=== PATIENT | male | born 1960 | race Caucasian/White ===

== ENCOUNTER → 2016-05-17 | Outpatient (CLI) | payer BC ==
--- NOTE | 2016-05-17 13:19 | US ---
EXAMINATION TYPE: US prostate transrectal DATE OF EXAM: 05/17/2016 9:51 AM COMPARISON: CT abdomen and pelvis December 11, 2012 CLINICAL HISTORY: N40.1 benign hyperplasia. This examination was performed using the transrectal probe. EXAM MEASUREMENTS: Gland Size: 3.1 x 2.1 x 1.9cm Volume: 6.2 Predicted PSA: 0.74 Actual PSA (if available):1.25 TECHNOLOGIST IMPRESSION: Due to shadowing and small size of gland technically difficult study. No ob vious mass seen on today's scan. Prostate gland is not enlarged in size. No definitive nodules are present. Seminal vesicles are not w ell seen on images saved. IMPRESSION: Prostate gland is normal to small in size without discrete nodule identified.
== END ==
LOC: RADUSMAIN 07:53
PROVIDERS: ATTEND Family Medicine
DX: N40.1 Benign prostatic hyperplasia with lower urinary tract symptoms (principal)
CPT/HCPCS: 76872

== ENCOUNTER → 2021-03-12 | Outpatient (CLI) | payer BC ==
--- NOTE | 2021-03-12 16:30 | MR ---
EXAMINATION TYPE: MR knee RT wo con DATE OF EXAM: 03/12/2021 COMPARISON: Outside radiograph 03/06/2021 HISTORY: 60-year-old male Right knee pain, Swelling and locking x 2 weeks post jogging. TECHNIQUE: Multiplanar, multisequence imaging of the right knee is performed without IV contrast. FINDINGS: ACL and PCL are intact. There is 1.1 cm suspected early intraosseous ganglion cyst formation at the femoral attachment of the popliteus tendon. There is also edema tracking along the popliteus myotendinous junction, axial imag e 10. LCL complex otherwise intact. There is edema on either side of the intact MCL fibers. There is a small oblique tear at the junction of the posterior horn and body of the medial meniscus, sagittal image 10 and coronal image 25. Nearly full-thickness cartilage defect mid weightbearing aspect of the medial femoral condyle measuri ng 5 mm wide and 7 mm AP. Lateral meniscus appears intact. Focal moderate thickness cartilage fissure along the mid weightbeari ng aspect of the lateral femoral condyle, coronal image 23. Moderate irregular cartilage loss throughout the patellofemoral compartment. More areas of higher gra de cartilage loss along the patellar facets with reactive subchondral signal change. Extensor mechanism is intact. Small knee joint effusion. No Chavarria's cyst. There is some edema at the proximal tibiofibular joint and also some mild adjacent soft tissue edema. Suspect a ganglion cyst beginning to form, tracking from the proximal tibiofibular joint, axial imag e 4 and coronal image 31, measuring 1.9 cm and extending to the lateral margin of the lower popliteal neurovascular bundle. IMPRESSION: 1. Small oblique tear at the junction of the posterior horn and body of the medial meniscus. Nearly f ull-thickness cartilage defect along the mid weightbearing aspect of the medial femoral condyle measu ring 5 x 7 mm. 2. Focal moderate thickness cartilage fissure along the mid weightbearing aspect of the lateral femor al condyle. 3. Moderate overall patellofemoral compartmental osteoarthrosis. 4. Grade 1 MCL sprain. 5. Popliteus strain with suspected interstitial tearing along its myotendinous junction and a 1.1 cm intraosseous ganglion formation at its femoral attachment. 6. Additional edema at the proximal tibiofibular joint could represent a joint sprain with some react jimmie edema in the adjacent soft tissues. 7. A 1.9 cm ganglion cyst along the lateral margin of the lower popliteal neurovascular bundle tracki ng from the proximal tibiofibular joint.
== END | disposition home or self-care (01) ==
LOC: RADMRIMAIN 11:56
PROVIDERS: ATTEND Orthopaedic Surgery
DX: S83.241A Other tear of medial meniscus, current injury, right knee, initial encounter (principal); M17.11 Unilateral primary osteoarthritis, right knee; S83.8X1A Sprain of other specified parts of right knee, initial encounter; M67.461 Ganglion, right knee; X58.XXXA Exposure to other specified factors, initial encounter

== ENCOUNTER → 2021-03-19 | Outpatient (CLI) | payer BC ==
[2021-03-19 13:53] LABS: Basophils % (A) 1 %; Eosinophils # (A) 0.2 k/uL (0-0.7); Eosinophils % (A) 2 %; HCT 51.6 % (39.0-53.0); HGB 17.5 gm/dL (13.0-17.5); Lymphocytes # (A) 2.3 k/uL (1.0-4.8); Lymphocytes % (A) 28 %; MCH 31.8 pg (25.0-35.0); MCV 93.6 fL (80.0-100.0); Monocytes # (A) 0.5 k/uL (0-1.0); Monocytes % (A) 6 %; Neutrophils # (A) 4.9 k/uL (1.3-7.7); Neutrophils % (A) 61 %; Platelet Count 285 k/uL (150-450); RBC 5.52 m/uL (4.30-5.90); RDW 13.1 % (11.5-15.5)
[2021-03-19 18:20] LABS: Anion Gap 11.5 mmol/L (10.00-18.00); Carbon Dioxide 24.5 mmol/L (20.0-27.5); Potassium 4.2 mmol/L (3.5-5.5)
== END | disposition home or self-care (01) ==
LOC: LABPAT 12:23
PROVIDERS: ATTEND Orthopaedic Surgery
DX: Z01.812 Encounter for preprocedural laboratory examination (principal); M23.91 Unspecified internal derangement of right knee
CPT/HCPCS: 80051; 85025; 93005

== ENCOUNTER 2021-03-24 10:25 | Day surgery (SDC) | payer BC ==
[2021-03-18 11:51] VITALS: BMI 28.8
--- NOTE | 2021-03-23 09:57 | HP ---
HISTORY AND PHYSICAL CHIEF COMPLAINT: Right knee pain. 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 [place] when he felt a pop in his knee. He notes severe medial pain along with buckling and giving way ever since. He denies previous problems. He has been using crutches. He has tried medications, without much relief. PAST MEDICAL HISTORY: Significant for asthma and depression. PAST SURGICAL HISTORY: Significant for right shoulder arthroscopy. CURRENT MEDICATIONS: Ibuprofen. ALLERGIES: HE DENIES DRUG ALLERGIES. FAMILY HISTORY: Significant for cancer. SOCIAL HISTORY: Significant for social alcohol use. REVIEW OF SYSTEMS: Sixteen-point review of systems is otherwise reviewed and is noncontributory. PHYSICAL EXAMINATION: On examination, the patient is approximately 5 feet 8 inches, 190 pounds of mesomorphic habitus. HEENT exam is nonfocal. Neck is supple. He has painless passive motion of the right hip. Straight-leg raise is negative. Active motion of right knee: Minus 13 to 112 degrees of flexion. He has a moderate effusion. He is tender about the medial joint line. Collaterals are stable, Belgica is negative, Gris's elicits medial pain. He does have an antalgic gait pattern. His distal neurovascular exam appears intact in the right lower extremity. MRI report right knee 03/12/2021 shows evidence of a medial femoral condyle chondral defect along with a posterior medial meniscal tear. IMPRESSION: 1. Right knee internal derangement with symptomatic medial meniscal tear. 2. Right knee medial femoral condyle chondral defect. RECOMMENDATIONS: I talked to the patient at length regarding his condition along with treatment options. At this point he is having significant pain and mechanical symptoms after this acute injury. After thorough discussion, he opts to proceed with surgery. We will plan to proceed with arthroscopic evaluation with possible partial medial meniscectomy in addition to possible medial femoral chondrectomy with microfracture. Risks and benefits were discussed at length in layman's terms. We will likely perform that as an outpatient procedure. MMODL / IJN: [id number] /
[2021-03-24 11:19] VITALS: RESP 16
[2021-03-24] MEDS ORDERED: ONDANSETRON 4 MG/2 ML VIAL ONE (11:29)
[2021-03-24] MEDS ORDERED: LACTATED RINGERS 1,000 ML IV ONE (11:34)
[2021-03-24] MEDS ORDERED: DEXAMETHASONE SOD PHOSPHATE 4 MG/ML 1 ML VIAL IVP ONE (11:34)
[2021-03-24] MEDS ORDERED: ONDANSETRON 4 MG/2 ML VIAL IVP ONE (11:34)
[2021-03-24] MEDS ORDERED: MIDAZOLAM 2 MG/2 ML VIAL IVP ONE (11:41)
--- NOTE | 2021-03-24 12:06 | P.ANPRN ---
Procedure Note - Anesthesia - Nerve Block Performed Right Adductor Canal Single Time Out Performed: Yes (1140) Date of Procedure: 03/24/21 Procedure Start Time: 11:42 Procedure Stop Time: 11:46 Location of Patient: PreOp Indication: Acute Post-Operative Pain, Analgesia, Dx/Pain Location, Requested by Surgeon Sedation Type: Sedate with meaningful contact maintained Preparation: Sterile Prep, Sterile Dressing Position: Supine Catheter: None Needle Types: Pajunk Needle Gauge: 21 Ultrasound used to visualize needle placement: Yes Ultrasound used to observe medication spread: Yes Injectate: 0.5% Ropivacaine (see comment for volume) (10 mL mixed with 10 ML of preservative-free normal saline) Blood Aspirated: No Pain Paresthesia on Injection Noted: No Resistance on Injection: Normal Image Stored and Saved: Yes Events: Uneventful and Well Tolerated
--- NOTE | 2021-03-24 12:07 | P.ANPRN ---
Procedure Note - Anesthesia - Nerve Block Performed Right iPack Single Time Out Performed: Yes (1140) Date of Procedure: 03/24/21 Procedure Start Time: 11:48 Procedure Stop Time: 11:52 Location of Patient: PreOp Indication: Acute Post-Operative Pain, Analgesia, Dx/Pain Location, Requested by Surgeon Sedation Type: Sedate with meaningful contact maintained Preparation: Sterile Prep, Sterile Dressing Position: Supine Catheter: None Needle Types: Pajunk Needle Gauge: 21 Ultrasound used to visualize needle placement: Yes Ultrasound used to observe medication spread: Yes Injectate: 0.5% Ropivacaine (see comment for volume) (12 mL mixed with 10 ML of preservative-free normal saline) Blood Aspirated: No Pain Paresthesia on Injection Noted: No Resistance on Injection: Normal Image Stored and Saved: Yes Events: Uneventful and Well Tolerated
[2021-03-24] MEDS ORDERED: ROPIVACAINE 5 MG/ML 30 ML VIAL ONE (12:22)
[2021-03-24] MEDS ORDERED: LIDOCAINE 1% INJ 10MG/ML (20 ML MDV) ONE (12:22)
[2021-03-24] MEDS ORDERED: PROPOFOL 10 MG/ML 20 ML VIAL IV ONE (12:22)
[2021-03-24] MEDS ORDERED: SODIUM CHLORIDE 0.9% (PF) 10 ML VIAL ONE (12:22)
[2021-03-24] MEDS ORDERED: GLYCOPYRROLATE 0.2 MG/ML 2 ML VIAL ONE (12:22)
[2021-03-24] MEDS ORDERED: fentaNYL (PF) 50 MCG/ML 2 ML AMP ONE (12:22)
[2021-03-24] MEDS ORDERED: EPINEPHrine (PF) 1 ML in SODIUM CHLORIDE 0.9% IRRIGATIO 3,000 ML IRRIGATION ONE ×4 (12:30)
--- NOTE | 2021-03-24 13:12 | P.OP ---
Date of Procedure: 03/24/21 Preoperative Diagnosis: Right knee internal derangement Postoperative Diagnosis: Right knee posterior medial meniscal tear/grade 4 chondral injury central posterior medial femoral condyle Procedure(s) Performed: Right knee arthroscopic partial medial meniscectomy/microfracture medial femoral condyle Anesthesia: GALA Surgeon: Charly Botello Estimated Blood Loss (ml): 10 Pathology: none sent Condition: stable Disposition: PACU Indications for Procedure: The patient's 60-year-old male who presents with right knee pain and mechanical symptoms after a recent injury. A discussion of the risks and benefits of operative intervention versus conservative measures was made with patient. He opted to proceed with surgery. Operative risks to include infection, neurovascular injury, development of blood clots, possible incomplete resolution of symptoms, possible worsening symptoms and need for subsequent procedures was discussed. Informed consent was obtained. Operative Findings: As below Description of Procedure: The patient was brought to the operating room, and after induction of general anesthesia examined the right knee. Collaterals were stable, Belgica was negative, and posterior drawer was negative. The right lower extremity was prepped and draped in a normal fashion. A superior lateral portal was made through a 3 mm skin incision superior and lateral to the patella. This was used for outflow. A lateral portal was made through a 5 mm vertical skin incision lateral to the patella tendon above the joint line. Diagnostic arthroscopy was performed. On inspection of the medial compartment, a complex tear involving the posterior horn of the medial meniscus in the white-red junction was noted. This was not amenable to repair.. This was debrided back to stable base with straight baskets and a motorized shaver. A corresponding grade 4 chondral defect was noted involving the posterior central portion of the medial femoral condyle measuring 3 x 6 mm. Microfracture was performed with a power pic breeching the subchondral surface down to the bone marrow elements. On inspection of the notch, the anterior cruciate ligament appeared to be intact. On inspection of the lateral compartment, grade 2-3 chondral changes noted involving the distal lateral femoral condyle. The lateral meniscus appeared to be stable and intact. On inspection of the patellofemoral articulation, there is chondral fibrillation however no loose chondral fragments.. The gutters were clear debris. The knee was then thoroughly irrigated. The portals were closed with Steri-Strips. A sterile dressing was applied in addition to a compression stocking. The patient was awoken from general anesthesia and transferred to recovery room in good condition. Blood loss was estimated at 10 mL. No complications were incurred.
[2021-03-24 13:23] VITALS: TEMP 97.1
[2021-03-24] MEDS: LABETALOL 5 MG/ML VIAL MDV IV ONE ×2 (13:30→13:48)
[2021-03-24] MEDS ORDERED: HYDROmorphone 0.5 MG/0.5 ML SYRINGE IVP ONE (13:50)
[2021-03-24 14:25] VITALS: PULSE 72
[2021-03-24] MEDS ORDERED: hydrALAZINE HCL 20 MG/ML 1 ML VIAL IVP ONE (14:36)
[2021-03-24] MEDS ORDERED: hydrALAZINE HCL 20 MG/ML 1 ML VIAL ONE (14:37)
[2021-03-24 14:48] VITALS: BP 177/98
[2021-03-24] MEDS ORDERED: LACTATED RINGERS 1,000 ML IV SCH (15:15)
== END 2021-03-24 15:10 | disposition home or self-care (01) ==
LOC: OR 10:25
PROVIDERS: ATTEND Orthopaedic Surgery
DX: M23.91 Unspecified internal derangement of right knee (principal)
CPT/HCPCS: 29881; J2250; J0360; J1100; J0690; J2405; J0171; J2001; J3010; J2704; J1170; 64447; 64999; 76942

== ENCOUNTER → 2022-06-01 | Outpatient (CLI) | payer BC ==
--- NOTE | 2022-06-01 15:10 | CT ---
EXAMINATION TYPE: CT chest wo con CT DLP: 585 mGycm, Automated exposure control for dose reduction was used. DATE OF EXAM: 06/01/2022 2:54 PM COMPARISON: None CLINICAL INDICATION:Male, 61 years old with history of R06.02, J45.40; PHH, SOB TECHNIQUE: Multiple axial images were obtained through the chest without IV contrast. Lack of IV or o ral contrast limits evaluation of solid and hollow organ viscera. FINDINGS: LUNGS/ PLEURA: No pleural effusion, pneumothorax, or focal consolidation. No suspicious pulmonary nod ules or masses. AIRWAY: Patent and unremarkable.. HEART: Size within normal limits. No pericardial effusion. Minimal coronary arterial calcifications. MEDIASTINUM: No gross evidence of adenopathy. VASCULATURE: No aortic aneurysm. MUSCULOSKELETAL: No acute osseous abnormalities SOFT TISSUES/LYMPH NODES: Mild bilateral gynecomastia. LOWER NECK: No significant findings. UPPER ABDOMEN: Subcentimeter hypodensities of the liver most consistent with cysts. IMPRESSION: No acute thoracic process.
== END | disposition home or self-care (01) ==
LOC: RADCTMAIN 14:33
PROVIDERS: ATTEND Internal Medicine Clinical Cardiac Electrophysiology
DX: J45.40 Moderate persistent asthma, uncomplicated (principal); U07.1 COVID-19
CPT/HCPCS: 71250; 94060; 94726; 94729

== ENCOUNTER 2023-07-26 22:44 | Observation (INO) | payer BC ==
--- NOTE | 2023-07-26 23:14 | ED ---
General Adult HPI - General Source: patient, RN notes reviewed Mode of arrival: ambulatory Limitations: no limitations <Chanel Warren - Last Filed: 07/26/23 23:11> <Lottie Mckinley - Last Filed: 07/27/23 02:40> - General Chief complaint: Recheck/Abnormal Lab/Rx Stated complaint: Hypertension, Headache Time Seen by Provider: 07/26/23 22:58 - History of Present Illness Initial comments: Quick Note-this is a 62-year-old male presents emergency department complaint of elevated blood pressure. Patient states that over the last 2 days he is an elevated blood pressure readings at home with his latest being 180/110. He endorses headaches. Denies blurry vision, double vision, chest pain, chest pressure, palpitations, dizziness. Patient takes losartan potassium 25 mg daily. Denies history of heart attack and stroke. (Chanel Warren) 62-year-old male with history of hypertension hyperlipidemia presenting with chief complaint of elevated blood pressure. Patient was experiencing headaches over the weekend, which prompted him to check his blood pressure at home. States that he was persistently in the 160s systolic range. Today he checked his blood pressure and it was in the 180 systolic range which prompted him to come to the ER. He still admits to mild headache. He is having no chest pain, difficulty breathing, abdominal pain, nausea, vomiting, vision or hearing changes. (Lottie Mckinley) - Related Data Home Medications Medication Instructions Recorded Confirmed Albuterol Inhaler [Ventolin Hfa 1 puff INHALATION DIRECTED PRN 03/18/21 03/24/21 Inhaler] Desvenlafaxine [Desvenlafaxine ER] 50 mg PO HS 03/18/21 03/24/21 Ibuprofen [Motrin] 800 mg PO Q8HR PRN 03/24/21 03/24/21 Previous Rx's Medication Instructions Recorded HYDROcodone/APAP 5-325MG [[place] 1 tab PO Q6HR PRN #21 tab 03/24/21 5-325] Allergies Allergy/AdvReac Type Severity Reaction Status Date / Time No Known Allergies Allergy Verified 07/26/23 22:47 Review of Systems ROS Other: All systems not noted in ROS Statement are negative. <Chanel Warren - Last Filed: 07/26/23 23:11> ROS Other: All systems not noted in ROS Statement are negative. <Lottie Mckinley - Last Filed: 07/27/23 02:40> ROS Statement: Those systems with pertinent positive or pertinent negative responses have been documented in the HPI. Past Medical History Past Medical History: Hyperlipidemia, Hypertension History of Any Multi-Drug Resistant Organisms: None Reported Past Surgical History: Appendectomy, Orthopedic Surgery Additional Past Surgical History / Comment(s): Achilles tendon repair, bilateral shoulder surgery. Past Anesthesia/Blood Transfusion Reactions: Postoperative Nausea & Vomiting (PONV) Past Psychological History: No Psychological Hx Reported Smoking Status: Never smoker Past Alcohol Use History: Occasional Past Drug Use History: None Reported - Past Family History Mother Family Medical History: Cancer Father Family Medical History: Cancer Brother(s) Family Medical History: Cancer <Chanel Warren - Last Filed: 07/26/23 23:11> General Exam Limitations: no limitations <Chanel Warren - Last Filed: 07/26/23 23:11> Limitations: no limitations General appearance: alert, in no apparent distress Head exam: Present: atraumatic, normocephalic Eye exam: Present: normal appearance, EOMI Neck exam: Present: normal inspection Respiratory exam: Present: normal lung sounds bilaterally. Absent: respiratory distress, wheezes, rales, rhonchi, stridor Cardiovascular Exam: Present: regular rate, normal rhythm, normal heart sounds. Absent: systolic murmur, diastolic murmur, rubs, gallop, clicks Extremities exam: Absent: pedal edema Neurological exam: Present: alert, oriented X3 Psychiatric exam: Present: normal affect, normal mood Skin exam: Present: warm, dry <Lottie Mckinley - Last Filed: 07/27/23 02:40> - General Exam Comments Initial Comments: Visual Physical Exam Vital signs reviewed General: Well-appearing, nontoxic, no acute distress. Head: Normocephalic, atraumatic Eyes: PERRLA, EOMI ENT: Airway patent Chest: Nonlabored breathing Skin: No visual rash, normal skin tone Neuro: Alert and oriented 3 Musculoskeletal: No gross abnormalities (Stieler,Chanel) Course Vital Signs 07/26/23 07/26/23 07/27/23 22:45 23:58 00:39 Temperature 98.2 F Pulse Rate 72 60 61 Respiratory 18 16 16 Rate Blood Pressure 186/97 158/88 161/92 O2 Sat by Pulse 99 97 Oximetry 07/27/23 07/27/23 07/27/23 00:51 01:42 02:25 Temperature Pulse Rate 57 L 82 61 Respiratory 16 16 15 Rate Blood Pressure 158/96 178/96 175/95 O2 Sat by Pulse 97 97 97 Oximetry Medical Decision Making <Chanel Warren - Last Filed: 07/26/23 23:11> - Lab Data Result diagrams: 07/26/23 23:21 07/26/23 23:21 <Lottie Mckinley - Last Filed: 07/27/23 02:40> - Medical Decision Making I completed the quick note portion of this chart signed Chanel Warren PA-C (Chanel Warren) Was pt. sent in by a medical professional or institution ([facility], [employer], urgent care, hospital, or fpc...) When possible be specific @ -No Did you speak to anyone other than the patient for history (EMS, parent, family, police, friend...)? What history was obtained from this source @ -No Did you review nursing and triage notes (agree or disagree)? Why? @ -I reviewed and agree with nursing and triage notes Were old charts reviewed (outside hosp., previous admission, EMS record, old EKG, old radiological studies, urgent care reports/EKG's, fpc records)? Report findings @ -No old charts were reviewed Differential Diagnosis (chest pain, altered mental status, abdominal pain women, abdominal pain men, vaginal bleeding, weakness, fever, dyspnea, syncope, headache, dizziness, GI bleed, back pain, seizure, CVA, palpatations, mental health, musculoskeletal)? @ -Differential includes idiopathic hypertension, renal disease, ACS, CHF, COPD, this is not an all-inclusive list EKG interpreted by me (3pts min.). @ -EKG shows sinus rhythm ventricular rate 66. CO interval 160. QRS 104. QT 390. QTc 404. No ST deviation. X-rays interpreted by me (1pt min.). @ -Chest x-ray shows no acute process by my interpretation, formal report is pending CT interpreted by me (1pt min.). @ -None done U/S interpreted by me (1pt. min.). @ -None done What testing was considered but not performed or refused? (CT, X-rays, U/S, labs)? Why? @ -None What meds were considered but not given or refused? Why? @ -None Did you discuss the management of the patient with other professionals (professionals i.e. , PA, [employer]SEMBLER, lab, RT, psych nurse, social services, lead etl developer, teacher, radiation safety officer, geriatric case manager)? Give summary @ -Spoke with the admitting provider who accepted admission Was smoking cessation discussed for >3mins.? @ -No Was critical care preformed (if so, how long)? @ -No Were there social determinants of health that impacted care today? How? (Homelessness, low income, unemployed, alcoholism, drug addiction, trans portation, low edu. Level, literacy, decrease access to med. care, [facility], rehab)? @ -No Was there de-escalation of care discussed even if they declined (Discuss DNR or withdrawal of care, Hospice)? DNR status @ -No What co-morbidities impacted this encounter? (DM, HTN, Smoking, COPD, CAD, Cancer, CVA, ARF, Chemo, Hep., AIDS, mental health diagnosis, sleep apnea, morbid obesity)? @ -Hypertension, hyperlipidemia Was patient admitted / discharged? Hospital course, mention meds given and route, prescriptions, significant lab abnormalities, going to OR and other pertinent info. @ -62-year-old male presenting with chief complaint of elevated blood pressure. Patient admits to headache. No chest pain. Workup is initiated by triage, patient is later placed in a room and evaluated by myself. He is found to have a troponin of 0.069. Initial and repeat EKG show no evidence of ACS. Patient o n reassessment denies any chest pain. States that his headache has improved. He is educated on today's findings. He will be admitted for serial troponins and evaluation by cardiology. Patient is agreeable with this plan. I discussed this case with my attending Dr. Brush. Given that the patient is not having chest pain or any other symptoms consistent with ACS the decision was made not to heparinize by myself and my attending Dr. Brush. Undiagnosed new problem with uncertain prognosis? @ -No Drug Therapy requiring intensive monitoring for toxicity (Heparin, Nitro, Insulin, Cardizem)? @ -No Were any procedures done? @ -No Diagnosis/symptom? @ -Elevated troponin Acute, or Chronic, or Acute on Chronic? @ -Acute Uncomplicated (without systemic symptoms) or Complicated (systemic symptoms)? @ -Complicated Side effects of treatment? @ -No Exacerbation, Progression, or Severe Exacerbation? @ -No Poses a threat to life or bodily function? How? (Chest pain, USA, ND, pneumonia, PE, COPD, DKA, ARF, appy, cholecystitis, CVA, Diverticulitis, Homicidal, Suicidal, threat to staff... and all critical care pts) @ -Yes (Lottie Mckinley) - Lab Data Lab Results 07/26/23 07/26/23 07/27/23 Range/Units 23:21 23:21 00:00 WBC 9.4 (3.8-10.6) k/uL RBC 5.26 (4.30-5.90) m/uL Hgb 16.1 (13.0-17.5) gm/dL Hct 48.3 (39.0-53.0) % MCV 91.8 (80.0-100.0) fL MCH 30.6 (25.0-35.0) pg MCHC 33.3 (31.0-37.0) g/dL RDW 12.6 (11.5-15.5) % Plt Count 210 (150-450) k/uL MPV 8.0 Neutrophils % 59 % Lymphocytes % 30 % Monocytes % 6 % Eosinophils % 2 % Basophils % 1 % Neutrophils # 5.5 (1.3-7.7) k/uL Lymphocytes # 2.8 (1.0-4.8) k/uL Monocytes # 0.6 (0-1.0) k/uL Eosinophils # 0.2 (0-0.7) k/uL Basophils # 0.1 (0-0.2) k/uL Sodium 138 (137-145) mmol/L Potassium 3.5 (3.5-5.1) mmol/L Chloride 107 (98-107) mmol/L Carbon Dioxide 20 L (22-30) mmol/L Anion Gap 11 mmol/L BUN 16 (9-20) mg/dL Creatinine 0.85 (0.66-1.25) mg/dL Est GFR (CKD-EPI)AfAm >90 (>60 ml/min/1.73 sqM) Est GFR (CKD-EPI)NonAf >90 (>60 ml/min/1.73 sqM) Glucose 105 H (74-99) mg/dL Calcium 9.5 (8.4-10.2) mg/dL Magnesium 1.9 (1.6-2.3) mg/dL Total Bilirubin 0.8 (0.2-1.3) mg/dL AST 41 (17-59) U/L ALT 39 (4-49) U/L Alkaline Phosphatase 90 (38-126) U/L Troponin I 0.069 H* (0.000-0.034) ng/mL Total Protein 7.1 (6.3-8.2) g/dL Albumin 4.4 (3.5-5.0) g/dL Disposition <Chanel Warren - Last Filed: 07/26/23 23:11> Time of Disposition: 02:16 <Lottie Mckinley - Last Filed: 07/27/23 02:40> Clinical Impression: Elevated troponin Disposition: ADMITTED IP TO THIS HOSP Condition: Fair Referrals: None,Stated [Primary Care Provider] - 1-2 days
[2023-07-26 23:41] LABS: Basophils # (A) 0.1 k/uL (0-0.2); Basophils % (A) 1 %; Eosinophils # (A) 0.2 k/uL (0-0.7); Eosinophils % (A) 2 %; HCT 48.3 % (39.0-53.0); HGB 16.1 gm/dL (13.0-17.5); Lymphocytes # (A) 2.8 k/uL (1.0-4.8); Lymphocytes % (A) 30 %; MCH 30.6 pg (25.0-35.0); MCHC 33.3 g/dL (31.0-37.0); MCV 91.8 fL (80.0-100.0); Monocytes # (A) 0.6 k/uL (0-1.0); Monocytes % (A) 6 %; Neutrophils # (A) 5.5 k/uL (1.3-7.7); Neutrophils % (A) 59 %; Platelet Count 210 k/uL (150-450); RBC 5.26 m/uL (4.30-5.90); RDW 12.6 % (11.5-15.5); WBC 9.4 k/uL (3.8-10.6)
[2023-07-26 23:58] LABS: ALT 39 U/L (4-49); AST 41 U/L (17-59); African American GFR (CKD) >90 (>60 ml/min/1.73 sqM); Albumin 4.4 g/dL (3.5-5.0); Alkaline Phosphatase 90 U/L (38-126); Anion Gap 11 mmol/L; Blood Urea Nitrogen 16 mg/dL (9-20); Calcium 9.5 mg/dL (8.4-10.2); Carbon Dioxide 20 mmol/L (22-30); Chloride 107 mmol/L (98-107); Glucose 105 mg/dL (74-99); Magnesium 1.9 mg/dL (1.6-2.3); Non-African American GFR(CKD) >90 (>60 ml/min/1.73 sqM); Potassium 3.5 mmol/L (3.5-5.1); Sodium 138 mmol/L (137-145); Total Bilirubin 0.8 mg/dL (0.2-1.3); Total Protein 7.1 g/dL (6.3-8.2)
[2023-07-27] MEDS: ACETAMINOPHEN TAB 500 MG TAB PO STA (00:45)
[2023-07-27] MEDS: SODIUM CHLORIDE 0.9% 500 ML 500 ML IV ONE (00:51)
[2023-07-27] MEDS: ASPIRIN 81 MG PO STA (02:20)
[2023-07-27] MEDS: hydrALAZINE HCL 20 MG/ML 1 ML VIAL IVP STA (02:22)
[2023-07-27] MEDS ORDERED: NALOXONE 0.4 MG/ML 1 ML VIAL IV PRN (02:40)
[2023-07-27] MEDS ORDERED: ACETAMINOPHEN TAB 325 MG TAB PO PRN (02:40)
--- NOTE | 2023-07-27 03:14 | XR ---
EXAM: XR Chest, 2 Views CLINICAL HISTORY: ITS.REASON XR Reason: elevated BP TECHNIQUE: Frontal and lateral views of the chest. COMPARISON: No relevant prior studies available. FINDINGS: Lungs: Unremarkable. No consolidation. Pleural space: Unremarkable. No pneumothorax. Heart: Unremarkable. No cardiomegaly. Mediastinum: Unremarkable. Normal mediastinal contour. Bones/joints: Unremarkable. No acute fracture. IMPRESSION: Normal chest x-rays.
[2023-07-27] MEDS ORDERED: NON FORMULARY DRUG (Rosuvastatin 10 MG Tablet) PO SCH (09:00)
[2023-07-27] MEDS ORDERED: LOSARTAN 25 MG TAB PO SCH (09:00)
[2023-07-27] MEDS: ATORVASTATIN 40 MG TAB PO SCH (09:53)
[2023-07-27] MEDS: LOSARTAN 50 MG TAB PO SCH (09:53)
[2023-07-27] MEDS ORDERED: hydrALAZINE HCL 20 MG/ML 1 ML VIAL IVP PRN (10:35)
--- NOTE | 2023-07-27 11:29 | P.HPIM ---
History of Present Illness H&P Date: 07/27/23 History of present illness; patient 62-year-old gentleman past medical history significant for hypertension, hyperlipidemia who initially presented to the hospital for elevated blood pressure. Patient states that over the last couple of days he has been noticing that his blood pressure has been running high at home. Patient has been checking blood pressure at home and has consistently found his systolic to be above 160s. Patient was also complaining of headache which he attributed to his elevated blood pressure. Denied any chest pain. There was no complaint of shortness of breath. Denies any nausea, vomiting, pain. Denies any lightheadedness or dizziness. There was no complaint of ort hopnea or PND. Because of his elevated blood pressure, patient came to the ER Initial lab work done in the ER showed WBC 9.4, hemoglobin 16.1, platelet count 210, sodium 138, potassium 3.5, anion gap 11, BUN 16, creatinine 0.85, glucose 105 troponin 0.069, EKG done in the ER showed heart rate of 54, no ST segment elevation or depression seen, no T-wave inversions seen. Chest x-ray done in the ER showed no acute cardiopulmonary process Patient admitted to internal medicine service REVIEW OF SYSTEMS: CONSTITUTIONAL: No fever, no malaise, no fatigue. HEENT: No recent visual problems or hearing problems. Denied any sore throat. CARDIOVASCULAR: No chest pain, orthopnea, PND, no palpitations, no syncope. PULMONARY: No shortness of breath, no cough, no hemoptysis. GASTROINTESTINAL: No diarrhea, no nausea, no vomiting, no abdominal pain. NEUROLOGICAL: no weakness, no numbness. HEMATOLOGICAL: Denies any bleeding or petechiae. GENITOURINARY: Denies any burning micturition, frequency, or urgency. MUSCULOSKELETAL/RHEUMATOLOGICAL: Denies any joint pain, swelling, or any muscle pain. ENDOCRINE: Denies any polyuria or polydipsia. The rest of the 14-point review of systems is negative. PHYSICAL EXAMINATION: GENERAL: The patient is alert and oriented x3, not in any acute distress. Well developed, well nourished. HEENT: Pupils are round and equally reacting to light. EOMI. No scleral icterus. No conjunctival pallor. Normocephalic, atraumatic. No pharyngeal erythema. No thyromegaly. CARDIOVASCULAR: S1 and S2 present. No murmurs, rubs, or gallops. PULMONARY: Chest is clear to auscultation, no wheezing or crackles. ABDOMEN: Soft, nontender, nondistended, normoactive bowel sounds. No palpable organomegaly. MUSCULOSKELETAL: No joint swelling or deformity. EXTREMITIES: No cyanosis, clubbing, or pedal edema. NEUROLOGICAL: Gross neurological examination did not reveal any focal deficits. SKIN: No rashes. Assessment and plan Hypertensive emergency Elevated troponin Hypertension Hyperlipidemia Monitor vital signs Monitor CBC Monitor CMP Continue telemetry monitoring Ordered 2D echo Trend troponins Started losartan 50 mg twice a day Ordered as needed IV hydralazine Check TSH level Check cortisol level Check aldosterone levels Resume home meds Consult cardiology Labs and medication were reviewed.. Continue same treatment. Continue with symptomatic treatment. Resume home medication. Monitor labs and vitals. DVT and GI prophylaxis. Further recommendations as per clinical course of the patient Dictation was produced using [employer] dictation software. please excuse any grammatical, word or spelling errors. Past Medical History Past Medical History: Hyperlipidemia, Hypertension History of Any Multi-Drug Resistant Organisms: None Reported Past Surgical History: Appendectomy, Orthopedic Surgery Additional Past Surgical History / Comment(s): Achilles tendon repair, bilateral shoulder surgery. Past Anesthesia/Blood Transfusion Reactions: Postoperative Nausea & Vomiting (PONV) Past Psychological History: No Psychological Hx Reported Smoking Status: Never smoker Past Alcohol Use History: Occasional Past Drug Use History: None Reported - Past Family History Mother Family Medical History: Cancer Father Family Medical History: Cancer Brother(s) Family Medical History: Cancer Medications and Allergies Home Medications Medication Instructions Recorded Confirmed Type Doxycycline Monohydrate 100 mg PO PC-SUPPER 07/27/23 07/27/23 History Losartan [Cozaar] 25 mg PO DAILY 07/27/23 07/27/23 History Rosuvastatin [Crestor] 10 mg PO DAILY 07/27/23 07/27/23 History metroNIDAZOLE 0.75% CREAM 1 applic TOPICAL DIRECTED 07/27/23 07/27/23 History [Metrocream 0.75%] Allergies Allergy/AdvReac Type Severity Reaction Status Date / Time No Known Allergies Allergy Verified 07/27/23 07:45 Physical Exam Vitals: Vital Signs Temp Pulse Resp BP Pulse Ox 07/27/23 07:01 98.4 F 63 16 163/92 97 07/27/23 06:35 72 16 161/64 97 07/27/23 05:03 69 16 153/97 97 07/27/23 04:15 72 16 148/80 97 07/27/23 02:44 74 15 149/94 07/27/23 02:25 61 15 175/95 97 07/27/23 01:42 82 16 178/96 97 07/27/23 00:51 57 L 16 158/96 97 07/27/23 00:39 61 16 161/92 07/26/23 23:58 60 16 158/88 97 07/26/23 22:45 98.2 F 72 18 186/97 99 Intake and Output 07/26/23 07/27/23 07/27/23 22:59 06:59 14:59 Other: # Voids 1 Weight 86.183 kg Results CBC & Chem 7: 07/26/23 23:21 07/26/23 23:21 Labs: Abnormal Lab Results - Last 24 Hours (Table) 07/26/23 07/27/23 Range/Units 23:21 00:00 Carbon Dioxide 20 L (22-30) mmol/L Glucose 105 H (74-99) mg/dL Troponin I 0.069 H* (0.000-0.034) ng/mL
--- NOTE | 2023-07-27 12:22 | P.CRDCN ---
History of Present Illness History of present illness: HISTORY OF PRESENT ILLNESS: This is a 62-year-old male with a past medical history significant for hypertension, hyperlipidemia, and asthma. Patient follows in the office with Dr. Madrid. We have been asked to see the patient in consultation for elevated troponin. Patient examined at the bedside. Patient states on Tuesday when he was laying down in bed he could feel his pulse pounding throughout his body. He states that he checked his blood pressure at home and it was 160s over 100s. He denied having any chest pain or pressure. Denies any shortness of breath. The patient's blood pressures were found to be elevated upon admission to the hospital and remain elevated at the time of examination. The patient does report he has not been eating well lately and does report high sodium intake diet. He also reports a couple beers or whiskey daily. DIAGNOSTICS: - EKG reveals sinus mechanism with no signs of acute ischemia. - Chest xray negative for acute process. - Laboratory data: WBC 9.4. Hemoglobin 16.1. Platelet count 210. Sodium 138. Potassium 3.5. BUN 16. Creatinine 0.85. Magnesium 1.9. Troponin 0.069. 0.031. - Current home cardiac medications include losartan 25 mg daily and rosuvastatin 10 mg daily - No previous echocardiogram available in EMR for review - Patient underwent Lexiscan in April 2022 which was negative for ischemia REVIEW OF SYSTEMS: At the time of my exam: CONSTITUTIONAL: Denies fever or chills. HEENT: Denies blurred vision, vision changes, or eye pain. Denies hemoptysis CARDIOVASCULAR: Denies chest pain. Denies orthopnea. Denies PND. Denies palpitations RESPIRATORY: Denies shortness of breath. GASTROINTESTINAL: Denies abdominal pain. Denies nausea or vomiting. HEMATOLOGIC: Denies bleeding disorders. GENITOURINARY: Denies any blood in urine. SKIN: Denies pruitis. Denies rash. PHYSICAL EXAM: VITAL SIGNS: Reviewed. GENERAL: Well-developed in no acute distress. HEENT: Head is normocephalic. Pupils are equal, round. Sclerae anicteric. Mucous membranes of the mouth are moist. Neck supple. No JVD or thyromegaly LUNGS: Respirations even and unlabored. Lungs essentially clear to auscultation bilaterally. HEART: Regular rate and rhythm. S1 and S2 heard. ABDOMEN: Soft. Nondistended. Nontender. EXTREMITIES: Normal range of motion. No clubbing or cyanosis. Peripheral pulses intact. No lower extremity edema NEUROLOGIC: Awake and alert. Oriented x 3. ASSESSMENT: Hypertension, uncontrolled Elevated troponin, no evidence of acute coronary syndrome, likely lab error Hyperlipidemia History of asthma Daily alcohol use PLAN: Obtain 2D echo to assess cardiac structure and function Increase statin Increase losartan to 50 mg twice a day Discontinue PRN antihypertensive medications as this makes it difficult to dete rmine appropriate oral regimen Continue to monitor blood pressure Reinforced low-sodium diet with patient Recommend abstinence from alcohol Continue to monitor patient's blood pressure Anticipate discharge home tomorrow Nurse practitioner note has been reviewed by physician. Signing provider agrees with the documented findings, assessment, and plan of care documented by SOFTWARE INTEGRATION DEVELOPER as a scribe. Past Medical History Past Medical History: Hyperlipidemia, Hypertension History of Any Multi-Drug Resistant Organisms: None Reported Past Surgical History: Appendectomy, Orthopedic Surgery Additional Past Surgical History / Comment(s): Achilles tendon repair, bilateral shoulder surgery. Past Anesthesia/Blood Transfusion Reactions: Postoperative Nausea & Vomiting (PO NV) Past Psychological History: No Psychological Hx Reported Smoking Status: Never smoker Past Alcohol Use History: Occasional Past Drug Use History: None Reported - Past Family History Mother Family Medical History: Cancer Father Family Medical History: Cancer Brother(s) Family Medical History: Cancer Medications and Allergies Home Medications Medication Instructions Recorded Confirmed Type Doxycycline Monohydrate 100 mg PO PC-SUPPER 07/27/23 07/27/23 History Losartan [Cozaar] 25 mg PO DAILY 07/27/23 07/27/23 History Rosuvastatin [Crestor] 10 mg PO DAILY 07/27/23 07/27/23 History metroNIDAZOLE 0.75% CREAM 1 applic TOPICAL DIRECTED 07/27/23 07/27/23 History [Metrocream 0.75%] Allergies Allergy/AdvReac Type Severity Reaction Status Date / Time No Known Allergies Allergy Verified 07/27/23 07:45 Physical Exam Vitals: Vital Signs Temp Pulse Resp BP Pulse Ox 07/27/23 07:01 98.4 F 63 16 163/92 97 07/27/23 06:35 72 16 161/64 97 07/27/23 05:03 69 16 153/97 97 07/27/23 04:15 72 16 148/80 97 07/27/23 02:44 74 15 149/94 07/27/23 02:25 61 15 175/95 97 07/27/23 01:42 82 16 178/96 97 07/27/23 00:51 57 L 16 158/96 97 07/27/23 00:39 61 16 161/92 07/26/23 23:58 60 16 158/88 97 07/26/23 22:45 98.2 F 72 18 186/97 99 Intake and Output 07/26/23 07/27/23 07/27/23 22:59 06:59 14:59 Other: # Voids 1 Weight 86.183 kg Results 07/26/23 23:21 07/26/23 23:21 Cardiac Enzymes 07/26/23 07/27/23 07/27/23 Range/Units 23:21 00:00 05:39 AST 41 (17-59) U/L Troponin I 0.069 H* 0.031 (0.000-0.034) ng/mL CBC 07/26/23 Range/Units 23:21 WBC 9.4 (3.8-10.6) k/uL RBC 5.26 (4.30-5.90) m/uL Hgb 16.1 (13.0-17.5) gm/dL Hct 48.3 (39.0-53.0) % Plt Count 210 (150-450) k/uL Comprehensive Metabolic Panel 07/26/23 Range/Units 23:21 Sodium 138 (137-145) mmol/L Potassium 3.5 (3.5-5.1) mmol/L Chloride 107 (98-107) mmol/L Carbon Dioxide 20 L (22-30) mmol/L BUN 16 (9-20) mg/dL Creatinine 0.85 (0.66-1.25) mg/dL Glucose 105 H (74-99) mg/dL Calcium 9.5 (8.4-10.2) mg/dL AST 41 (17-59) U/L ALT 39 (4-49) U/L Alkaline Phosphatase 90 (38-126) U/L Total Protein 7.1 (6.3-8.2) g/dL Albumin 4.4 (3.5-5.0) g/dL Current Medications Generic Name Dose Route Start Last Admin Trade Name Freq PRN Reason Stop Dose Admin Acetaminophen 650 mg 07/27/23 02:40 Acetaminophen Tab 325 Mg Tab PO Q6HR PRN Mild Pain or Fever > 100.5 Naloxone HCl 0.2 mg 07/27/23 02:40 Naloxone 0.4 Mg/Ml 1 Ml Vial IV Q2M PRN Opioid Reversal Intake and Output 07/26/23 07/27/23 07/27/23 22:59 06:59 14:59 Other: # Voids 1 Weight 86.183 kg 07/26/23 23:21 07/26/23 23:21
[2023-07-28 08:06] VITALS: BP 131/72; PULSE 69; RESP 14; TEMP 98.2
--- NOTE | 2023-07-28 10:31 | P.PN ---
Subjective Progress Note Date: 07/28/23 HISTORY OF PRESENT ILLNESS: This is a 62-year-old male with a past medical history significant for hype rtension, hyperlipidemia, and asthma. Patient follows in the office with Dr. Madrid. We have been asked to see the patient in consultation for elevated troponin. Patient examined at the bedside. Patient states on Tuesday when he was laying down in bed he could feel his pulse pounding throughout his body. He states that he checked his blood pressure at home and it was 160s over 100s. He denied having any chest pain or pressure. Denies any shortness of breath. The patient's blood pressures were found to be elevated upon admission to the hospital and remain elevated at the time of examination. The patient does report he has not been eating well lately and does report high sodium intake di et. He also reports a couple beers or whiskey daily. DIAGNOSTICS: - EKG reveals sinus mechanism with no signs of acute ischemia. - Chest xray negative for acute process. - Laboratory data: WBC 9.4. Hemoglobin 16.1. Platelet count 210. Sodium 138. Potassium 3.5. BUN 16. Creatinine 0.85. Magnesium 1.9. Troponin 0.069. 0.031. - Current home cardiac medications include losartan 25 mg daily and rosuvastatin 10 mg daily - No previous echocardiogram available in EMR for review - Patient underwent Lexiscan in April 2022 which was negative for ischemia 07/27 Patient is seen today in follow-up on the observation unit. No chest pain. Blood pressure and heart rate are stable. Blood pressure 131/72, heart rate 69, pulse ox 98% on room air. TSH 1.77. Cortisol of 11.5. Echocardiogram seems to have been canceled. Aldosterone, metanephrines, and renin direct are pending. PHYSICAL EXAM: VITAL SIGNS: Reviewed. GENERAL: Well-developed in no acute distress. HEENT: Head is normocephalic. Pupils are equal, round. Sclerae anicteric. Mucous membranes of the mouth are moist. Neck supple. No JVD or thyromegaly LUNGS: Respirations even and unlabored. Lungs essentially clear to auscultation bilaterally. HEART: Regular rate and rhythm. S1 and S2 heard. ABDOMEN: Soft. Nondistended. Nontender. EXTREMITIES: Normal range of motion. No clubbing or cyanosis. Peripheral pulses intact. No lower extremity edema NEUROLOGIC: Awake and alert. Oriented x 3. ASSESSMENT: Hypertension, uncontrolled Elevated troponin, no evidence of acute coronary syndrome, likely lab error Hyperlipidemia History of asthma Daily alcohol use PLAN: Continue patient on atorvastatin, losartan 50 mg twice daily Reinforced low-sodium diet with patient Recommend abstinence from alcohol Patient is cleared for discharge from cardiology and may follow-up in the office with Dr. Madrid in 1 week. Nurse practitioner note has been reviewed by physician. Signing provider agrees with the documented findings, assessment, and plan of care documented by LOT ASSOCIATE as a scribe. Objective - Vital Signs Vital signs: Vital Signs Temp 98.2 F 07/28/23 07:27 Pulse 69 07/28/23 07:27 Resp 14 07/28/23 07:27 BP 131/72 07/28/23 07:27 Pulse Ox 98 07/28/23 07:27 FiO2 Intake & Output 07/27/23 07/28/23 07/28/23 18:59 06:59 18:59 Intake Total 118 Balance 118 Weight 86.183 kg Intake: Oral 118 Other: # Voids 2 - Labs CBC & Chem 7: 07/26/23 23:21 07/26/23 23:21
--- NOTE | 2023-07-28 11:06 | P.DS ---
Providers Date of admission: 07/27/23 02:42 Expected date of discharge: 07/28/23 Attending physician: Peg Moore Consults: 07/27/23 02:40 Consult Physician Urgent Consulting Provider: [facility] Consult Reason/Comments: elevated troponin Do you want consulting provider notified?: Yes, Notify in am Primary care physician: Stated None Hospital Course: Discharge diagnoses; Hypertensive emergency Elevated troponin Poorly controlled hypertension Hyperlipidemia Hospital course; patient 62-year-old gentleman past medical history significant for hypertension, hyperlipidemia who initially presented to the hospital for elevated blood pressure. Patient states that over the last couple of days he has been noticing that his blood pressure has been running high at home. Patient has been checking blood pressure at home and has consistently found his systolic to be above 160s. Patient was also complaining of headache which he attributed to his elevated blood pressure. Denied any chest pain. There was no complaint of shortness of breath. Denies any nausea, vomiting, pain. Denies any lightheadedness or dizziness. There was no complaint of orthopnea or PND. Because of his elevated blood pressure, patient came to the ER Initial lab work done in the ER showed WBC 9.4, hemoglobin 16.1, platelet count 210, sodium 138, potassium 3.5, anion gap 11, BUN 16, creatinine 0.85, glucose 105 troponin 0.069, EKG done in the ER showed heart rate of 54, no ST segment elevation or depression seen, no T-wave inversions seen. Chest x-ray done in the ER showed no acute cardiopulmonary process Patient admitted to internal medicine service 07/27. Patient seen and examined. Patient was evaluated by cardiology, they increase losartan to 50 mg twice daily and increase the dose of statins. Cardiology recommend outpatient follow-up with with keeping logs of blood pressure. Cardiology cleared patient for discharge PHYSICAL EXAMINATION: GENERAL: The patient is alert and oriented x3, not in any acute distress. Well developed, well nourished. HEENT: Pupils are round and equally reacting to light. EOMI. No scleral icterus. No conjunctival pallor. Normocephalic, atraumatic. No pharyngeal erythema. No thyromegaly. CARDIOVASCULAR: S1 and S2 present. No murmurs, rubs, or gallops. PULMONARY: Chest is clear to auscultation, no wheezing or crackles. ABDOMEN: Soft, nontender, nondistended, normoactive bowel sounds. No palpable organomegaly. MUSCULOSKELETAL: No joint swelling or deformity. EXTREMITIES: No cyanosis, clubbing, or pedal edema. NEUROLOGICAL: Gross neurological examination did not reveal any focal deficits. SKIN: No rashes. Dictation was produced using [employer] dictation software. please excuse any grammatical, word or spelling errors. Patient Condition at Discharge: Fair Plan - Discharge Summary Discharge Rx Participant: Yes New Discharge Prescriptions: New Losartan [Cozaar] 50 mg PO BID 30 Days #60 tab Atorvastatin [Lipitor] 40 mg PO DAILY 30 Days #30 tab Continue Doxycycline Monohydrate 100 mg PO PC-SUPPER metroNIDAZOLE 0.75% CREAM [Metrocream 0.75%] 1 applic TOPICAL DIRECTED Discontinued Losartan [Cozaar] 25 mg PO DAILY Rosuvastatin [Crestor] 10 mg PO DAILY Discharge Medication List Doxycycline Monohydrate 100 mg PO PC-SUPPER 07/27/23 [History] metroNIDAZOLE 0.75% CREAM [Metrocream 0.75%] 1 applic TOPICAL DIRECTED 07/27/23 [History] Atorvastatin [Lipitor] 40 mg PO DAILY 30 Days #30 tab 07/28/23 [Rx] Losartan [Cozaar] 50 mg PO BID 30 Days #60 tab 07/28/23 [Rx] Follow up Appointment(s)/Referral(s): Kirk Madrid MD [STAFF PHYSICIAN] - 1 Week None,Stated [Primary Care Provider] - 1-2 days Discharge Disposition: HOME SELF-CARE
--- NOTE | 2023-07-28 15:09 | CA ---
Transthoracic Echo Report Name: Veto Marie Age: 62 Gender: M : 1960 Exam Date: 07/27/2023 14:49 Exam Location: [facility] Ht (in): 69 Wt (lb): 190 Ordering Physician: Marielena Hill Attending/Referring Phys: [id number], Liz Hops Farmworker Ivet Chi RDCS Procedure CPT: Indications: LV function, HTN Cardiac Hx: Technical Quality: Fair Contrast 1: Total Dose (mL): Contrast 2: Total Dose (mL): MEASUREMENTS (Male / Female) Normal Values 2D ECHO LV Diastolic Diameter PLAX 4.2 cm 4.2 - 5.9 / 3.9 - 5.3 cm LV Systolic Diameter PLAX 2.6 cm IVS Diastolic Thickness 1.1 cm 0.6 - 1.0 / 0.6 - 0.9 cm LVPW Diastolic Thickness 1.1 cm 0.6 - 1.0 / 0.6 - 0.9 cm LV Relative Wall Thickness 0.5 RV Internal Dim ED PLAX 3.7 cm LA Systolic Diameter LX 3.2 cm 3.0 - 4.0 / 2.7 - 3.8 cm LV Diastolic Volume MOD 4C 141.4 cm??? LV Systolic Volume MOD 4C 58.9 cm??? LV Ejection Fraction MOD 4C 58.4 % LV Cardiac Index MOD 4C 2316.9 cm???/min???m??? LV Diastolic Length 4C 9.4 cm LV Systolic Length 4C 7.5 cm LV Diastolic Volume MOD 2C 106.4 cm??? LV Systolic Volume MOD 2C 51.7 cm??? LV Ejection Fraction MOD 2C 51.4 % LV Cardiac Index MOD 2C 1536.1 cm???/min???m??? LV Diastolic Length 2C 9.1 cm LV Systolic Length 2C 7.3 cm LA Volume 38.3 cm??? 18 - 58 / 22 - 52 cm??? LA Volume Index 18.5 cm???/m??? 16 - 28 cm???/m??? M-MODE Aortic Root Diameter MM 3.1 cm AV Cusp Separation MM 2.1 cm DOPPLER AV Peak Velocity 129.3 cm/s AV Peak Gradient 6.7 mmHg MV Area PHT 2.8 cm??? Mitral E Point Velocity 56.7 cm/s Mitral A Point Velocity 79.3 cm/s Mitral E to A Ratio 0.7 MV Deceleration Time 267.6 ms LV E' Lateral Velocity 7.5 cm/s Mitral E to LV E' Lateral Ratio 7.6 LV E' Septal Velocity 5.2 cm/s Mitral E to LV E' Septal Ratio 11.0 FINDINGS Left Ventricle Left ventricular ejection fraction is estimated at 55-60 %. Left ventricular cavity size normal. Mildly increased septal wall thickness. Normal left ventricular wall motion. Right Ventricle Normal right ventricular size and function. Unable to estimate the right ventricular systolic pressure. Right Atrium Normal right atrial size. No right atrial thrombus or mass seen. Left Atrium Normal left atrial size. No left atrial thrombus or mass present. Mitral Valve Structurally normal mitral valve. No mitral stenosis, regurgitation or prolapse. Aortic Valve Trileaflet aortic valve. Thickened aortic valve without stenosis. Tricuspid Valve Structurally normal tricuspid valve. No tricuspid stenosis, regurgitation or prolapse. Pulmonic Valve Structurally normal pulmonic valve. No pulmonic regurgitation. Pericardium No pericardial or pleural effusion. Aorta Normal size aortic root and proximal ascending aorta. CONCLUSIONS Normal LV cavity size and wall thickness. LVEF 55% No obvious regional wall motion abnormality Normal RV size and function No significant valvular dysfunction No pericardial effusion Previewed by: Dr Kimo Kaur (Electronically Signed) Final Date: 27 Jul 2023 17:00
[2023-08-08 22:40] LABS: Normetanephrine, Free 69 pg/mL (< OR = 148); Total, Free (MN + NMN) 69 pg/mL (< OR = 205)
== END 2023-07-28 13:17 | disposition home or self-care (01) ==
LOC: EC 22:44 → 3SCARD 07-27 02:42 → 6NMEDSUR 07-27 12:03
PROVIDERS: ADMIT Hospitalist; ATTEND Hospitalist
DX: I16.1 Hypertensive emergency (principal); R79.89 Other specified abnormal findings of blood chemistry; I10 Essential (primary) hypertension; E78.5 Hyperlipidemia, unspecified; J45.909 Unspecified asthma, uncomplicated; F10.90 Alcohol use, unspecified, uncomplicated; Z79.899 Other long term (current) drug therapy
CPT/HCPCS: 96361; 96374; 99285; 36415 ×2; 93005 ×2; 93306; 83835; 80053; 84443; 82533; 82088; 84244; 83735; 84484; 85025; 71046; G0378 ×3; J0360

== ENCOUNTER → 2024-06-19 | Outpatient (CLI) | payer BC ==
--- NOTE | 2024-06-19 13:58 | XR ---
EXAMINATION TYPE: XR foot complete RT DATE OF EXAM: 06/19/2024 COMPARISON: NONE HISTORY: Pain TECHNIQUE: Frontal, lateral and oblique images of the right foot are obtained. FINDINGS: There is no acute fracture/dislocation evident. The joint spaces appear within normal soria its. The overlying soft tissue appears unremarkable. Small plantar calcaneal enthesophyte. IMPRESSION: There is no acute fracture or dislocation seen. [facility], , 06/19/2024 1:55 PM
== END | disposition home or self-care (01) ==
LOC: RADXRMAIN 13:13
PROVIDERS: ATTEND Podiatrist Primary Podiatric Medicine
DX: M19.071 Primary osteoarthritis, right ankle and foot (principal)